=== PATIENT | male | born 1995 | race Caucasian/White ===

== ENCOUNTER 2016-10-16 18:37 | Emergency (ER) | payer MEDICAID ==
[2016-10-16 18:52] VITALS: PULSE 52; O2SAT 97
--- NOTE | 2016-10-16 19:21 | EDPHY ---
H & P Smoking Status: Current some day smoker Time Seen by Provider: 10/16/16 18:49 HPI/ROS: CHIEF COMPLAINT: M1 hold HISTORY OF PRESENT ILLNESS: 21-year-old male presents to the emergency department on M1 hold by ambulance. The patient has a possible history of schizophrenia. He states that he is not prescribed any medication other than Ambien. He denies suicidal ideation. Denies homicidal ideation. Denies auditory hallucinations. He has had some visual hallucinations including "shadows". He does smoke marijuana. Denies any other substance abuse. Denies alcohol. Currently he has no physical complaints. No reported trauma. REVIEW OF SYSTEMS: Constitutional: No fever, no chills. Eyes: No double or blurry vision. ENT: No sore throat. Respiratory: No cough, no shortness of breath. Cardiac: No chest pain. Gastrointestinal: No abdominal pain, vomiting or diarrhea. Genitourinary: No dysuria. Musculoskeletal: No neck or back pain. Skin: No rashes. Neurological: No headache. (Brooke Valadez) Past Medical/Surgical History: Possible schizophrenia (Brooke Valadez) Social History: Single and lives in [place] (Brooke Valadez) Physical Exam: General Appearance: Alert, no distress. Mentating normally and answering questions appropriately. Eyes: Pupils equal and round. Extraocular motions are all intact. ENT: Mouth: Mucous membranes moist. Respiratory: No wheezing, rhonchi, or rales, lungs are clear to auscultation. Cardiovascular: Regular rate and rhythm. Gastrointestinal: Abdomen is soft and nontender, no masses, no rebound or guarding, bowel sounds normal. Neurological: Alert and oriented x 3, cranial nerves II through XII grossly intact Skin: Warm and dry, no rashes. Musculoskeletal: Nontender to palpate along the cervical, thoracic or lumbar spine. Neck is supple. Extremities: Full range of motion and no peripheral edema. Psychiatric: Patient is oriented X 3, there is no agitation. (Brooke Valadez) Constitutional: Initial Vital Signs Temperature (C) 36.6 C 10/16/16 18:46 Heart Rate 52 L 10/16/16 18:46 Respiratory Rate 17 10/16/16 18:46 Blood Pressure 133/77 H 10/16/16 18:46 O2 Sat (%) 97 10/16/16 18:46 O2 Delivery Mode Room Air Allergies/Adverse Reactions: No Known Allergies Allergy (Unverified 10/16/16 18:46) Home Medications: Medication Instructions Recorded Boni 10/16/16 Medical Decision Making ED Course/Re-evaluation: 21-year-old male presents to the emergency department on M1 hold. He has been medically cleared and was evaluated by mental health. The patient will be admitted to [facility]. (Brooke Valadez) I did not see this patient while he was in the emergency department. However his care was discussed with the PA while the patient was in the department. I agree with treatment plan and management (Rigoberto Dugan) Differential Diagnosis: Depression including functional and major depression, situational depression, medication side effect, drugs and alcohol abuse. (Brooke Valadez) - Data Points Laboratory Results: Laboratory Results 10/16/16 19:00 10/16/16 19:00 Departure - Departure Disposition: Other Psych, Not [facility] Clinical Impression: Depression Qualifiers: Depression Type: unspecified Qualified Code(s): F32.9 - Major depressive disorder, single episode, unspecified Condition: Good Referrals: Patient,NotPresent [Unknown] - As per Instructions
[2016-10-16 19:23] LABS: % IMMATURE GRANULYOCYTES 0.4 % (0.0-1.1); ABSOLUTE IMMATURE GRANULOCYTES 0.02 10^3/uL (0.00-0.10); ADD DIFF? NO; ADD MORPH? NO; ADD SCAN? NO; ATYPICAL LYMPHOCYTE FLAG 20 (0-99); FRAGMENT RBC FLAG 0 (0-99); HEMATOCRIT 43.6 % (40.0-51.0); HEMOGLOBIN 14.7 g/dL (13.7-17.5); LEFT SHIFT FLG 0 (0-99); LIPEMIA HEMOLYSIS FLAG 80 (0-99); MEAN CELL HEMOGLOBIN 28.8 pg (27.9-34.1); MEAN CELL HEMOGLOBIN CONCENTR. 33.7 g/dL (32.4-36.7); MEAN CELL VOLUME 85.5 fL (81.5-99.8); MEAN PLATELET VOLUME 11.3 fL (8.7-11.7); PLATELET CLUMPS FLAG 0 (0-99); PLATELET COUNT 168 10^3/uL (150-400); RED CELL DISTRIBUTION WIDTH 12.3 % (11.5-15.2)
[2016-10-16 19:30] LABS: ANION GAP 14 mEq/L (8-16); CALCIUM 9.8 mg/dL (8.5-10.4); CARBON DIOXIDE 26 mEq/l (22-31); CHLORIDE 104 mEq/L (97-110); CREATININE 1.1 mg/dL (0.7-1.3); ETHANOL SERUM < 10 mg/dL (0-10); GLOMERULAR FILTRATION RATE > 60; GLUCOSE 99 mg/dL (70-100); SODIUM 144 mEq/L (134-144)
[2016-10-16 23:18] VITALS: BP 119/70; RESP 14
[2016-10-17 00:10] VITALS: TEMP 97.5
== END 2016-10-17 00:10 ==
DX: F32.9 Major depressive disorder, single episode, unspecified (principal); F17.200 Nicotine dependence, unspecified, uncomplicated
CPT/HCPCS: 80305; G0480